=== PATIENT | female | born 1970 | race Caucasian/White ===

== ENCOUNTER → 2017-06-13 | Outpatient (CLI) | payer MEDICAID ==
[~2017-06-13] MED LIST: ABILIFY2 MG PO; AMITRIPTYLINE 225 MG PO; AMITRIPTYLINE 550 MG PO; AMITRIPTYLINE10 M1 PO; AMOXIL500 M1 PO; AMOXIL500 MG PO; APAP W/ CODEINE1 TAB PO; APAP/BUTALBITAL1 TA1 PO; AUGMENTIN 875-1 EACH PO; BACTRIM DS 8001 TAB PO; BACTROBAN2% TP; BUSPAR 10MG TAB10 MG PO; BUSPIRONE HCL15 MG PO; CEPHALEXIN500 MG PO; CIPRO 500MG TA500 MG PO; CIPRO HC 0.2%-110 ML OT; CITALOPRAM20 MG PO; DILAUDID4 MG PO; DOXEPIN 25MG CA25 MG PO; DOXYCYCLINE HY100 M4 PO; ELIMITE 5%60 GM/TUBE EX; ESTRADIOL0.5 MG PO; FIORICET1 CAP PO; FLEXERIL10 MG PO; IMITREX100 MG PO; IMITREX25 MG PO; KEFLEX 500MG.500 MG PO; LAMICTAL 100 M100 MG PO; LISINOPRIL 10MG10 MG PO; LISINOPRIL HCTZ1 TAB PO; LITHIUM CARB 3300 MG PO; LORAZEPAM0.5 MG/TAB PO; LORTAB 5/500 501 TAB PO; MEDROL 4MG. DOSE4 MG PO; MINOCYCLINE 10100 MG PO; MOBIC7.5 MG PO; MOTRIN800 MG PO; NADOLOL 20 MG T20 MG PO; NAPROSYN 250MG250 MG PO; NAPROSYN 500MG500 MG PO; NAPROSYN500 M1 PO; NAPROXEN EC500 MG PO; NASONEX0.05 MG/AC NS; NOMEDS *; NORCO 325 MG-51 TAB PO; PEN-VK500 MG PO; PHENERGAN 25MG.25 M1 PO; PREDNISONE 20MG20 MG PO; PROPRANOLOL HCL10 MG PO; PROTONIX 40MG T40 MG PO; PROVERA10 MG PO; QUETIAPINE FUM200 M1 PO; QUETIAPINE FUMA25 MG PO; RANITIDINE HCL150 MG PO; RANITIDINE HCL300 M1 PO; SEPTRA DS 800 M1 TAB PO; SEROQUEL 25MG T25 MG PO; SEROQUEL XR200 MG PO; SEROQUEL400 MG PO; SKELAXIN 800MG800 MG PO; SULFAMETHOXAZOL1 TA6 PO; TESSALON PERLE100 MG PO; TOPAMAX100 MG PO; TRAMADOL 50MG T50 MG PO; TRIAMCINOLON 0.80 G2 TP; TYLENOL ES500 MG PO; ULTRAM 50 MG TA50 MG PO; ULTRAM50 MG PO; VIBRAMYCIN 100100 MG PO; VICODIN 5/500 T1 TAB PO; VICODIN 5/6 EACH/PAK OR; VISTARIL25 M1 PO; VISTARIL50 MG PO; VOLTAREN 25MG T25 MG OR; VOLTAREN75 MG PO; ZITHROMAX Z PA250 MG PO; ZOLOFT100 MG PO; ZOLOFT25 MG PO
--- NOTE | 2017-06-13 11:03 | RADIOLOGY REPORT PS360 ---
MRI-BRAIN W/O HISTORY: Severe headache MIGRAINE W/OUT AURA, NON INTRACTABLE, OTHER CHRONIC PAIN ORDERING PHYSICIAN: SHON JAY PATIENT AGE: 46 years COMPARISON: CT head 07/17/2016 TECHNIQUE: Standard multiplanar multiecho sequences are performed without contrast. FINDINGS: No midline shift, mass effect, intracranial hemorrhage, or hydrocephalus is evident. There are several subcortical and periventricular T2 white matter hyperintensities. These are nonspecific. Differential diagnosis would include migraine headache, ischemic gliotic changes from microvascular disease, or multiple sclerosis. Please correlate with clinical findings. The corpus callosum and optic thorax are unremarkable arguing against but not excluding multiple sclerosis. No restricted diffusion evident. No evidence of acute infarction The cerebellopontine angles, cerebellum, and brainstem are unremarkable. No mastoid effusion or sinus air-fluid level. Upper cervical cord has an unremarkable appearance. There is mild degenerative disc disease with bulging disc and uncovertebral hypertrophy at C3-C4. No cerebellar ectopia. The hippocampal gyri are unremarkable in the temporal horns are symmetric. The pituitary and optic chiasm have an unremarkable appearance. IMPRESSION: 1. Several scattered periventricular and subcortical T2 white matter hyperintensities. This may be seen with sequela from migraine headache. Ischemic gliotic change from microvascular disease or demyelinating process is included in the differential diagnosis. 2. Otherwise negative MRI of the brain without contrast IMPRESSION:
== END ==
LOC: RAD 08:00
DX: G43.009 Migraine without aura, not intractable, without status migrainosus (principal); G89.29 Other chronic pain; G44.229 Chronic tension-type headache, not intractable; M54.5 Low back pain

== ENCOUNTER → 2017-06-27 | Outpatient (CLI) | payer MEDICAID ==
--- NOTE | 2017-06-28 09:56 | RADIOLOGY REPORT PS360 ---
DIG MAMM-SCREEN OSCAR W/CAD ORDERING PHYSICIAN : Wood Caal MD PATIENT AGE: 47 years GENDER: Female COMPARISON: November 2015, April HISTORY:Small palpable area behind nipple-not clear if right or left on provided history. [place] this type area of when had cyst. Also has nipple discharge site not specified. Previous nipple smear. . Patient takes estradiol. Previous excisional benign biopsy left breast. Patient ordered as screening. Technologist complied and order was not changed to diagnostic.. Noncontributory family history TECHNIQUE: Std CC & MLO images were obtained. A but required multiple views in these large breasts. In addition nipple profile cc & MLO views bilaterally obtained with given history. R2 CAD reviewed. FINDINGS: Generalized fatty replacement with Low-density breast bilaterally.. These lower density breast themselves to mammography in evaluation No new focal area of concern on mammography. Nipple profile views are helpful and demonstrates no areas of concern at retroareolar region.. LEFT BREAST: Apparently back in 2012 there was a palpable area noted and I believe may have been excised at that time although provided history and clear.. In either case this density, resolved on the 2015 and is not evident on today's studies either. Retroareolar region on left unremarkable. If palpable area is definitely evident/or recurred, I would suggest follow-up ultrasound of the left breast if it persists, particular if there is persistent discharge. Again since we see no significant area of concern or new density on mammography I have not recommended ultrasound... Also would note Bloody or clear discharge are typically most concerning, and if present/persist would warrant ultrasound involve breast as well as touch prep slide of breast discharge for cytology reviewed.. No findings on mammography to raise concern seen today and thus deferred to the clinical findings because unremarkable appearance on mammography. Scattered benign spherical densities calcifications throughout the medial left breast more so than right most compatible with areas of fat necrosis and benign lipid cysts RIGHT BREAST: No new areas of concern by mammography.. Scattered benign calcifications. . No ductal prominence in either breast IMPRESSION: No new areas of concern by mammography Note comments in text. If patient does indeed have a persistent palpable area in or persistent nipple discharge follow-up ultrasound of the involved breast would be warranted., However I see no areas of concern on mammography to require such currently but clinical correlation required. BI-RADS CATEGORY: 2_Benign RECOMMENDED FOLLOWUP: 12M 12 MONTH FOLLOW-UP (A letter has been sent to the patient regarding results of the study.)
== END ==
LOC: RAD 06-23 10:30
DX: Z12.31 Encounter for screening mammogram for malignant neoplasm of breast (principal)
CPT/HCPCS: G0202